=== PATIENT | male | born 1945 | race Caucasian/White ===

== ENCOUNTER 2017-10-09 08:56 | Emergency (ER) | payer OTHER, MEDICAID ==
[2017-10-09] MEDS: ACETAMINOPHEN 500 MG TAB PO (09:59)
[2017-10-09] MEDS: KETOROLAC 30 MG INJ IM (11:23)
== END 2017-10-09 12:27 | disposition home or self-care (01) ==
LOC: FTE 08:56
DX: R51 Headache (principal); I10 Essential (primary) hypertension; E11.9 Type 2 diabetes mellitus without complications
CPT/HCPCS: 70450; 72125; 96372; 99285-25